=== PATIENT | female | born 1990 | race Caucasian/White ===

== ENCOUNTER 2020-07-08 00:42 | Emergency (ER) | payer OTHER ==
[~2020-07-08] VITALS: Ht 170.2 cm; Wt 72.6 kg
[~2020-07-08 00:42] MED LIST: ADULT ONE DAI200 MCG; BENTYL PO; BIRTH CONTROL; BONIVA150 MG; CALCIUM 600 +1 EAC8; FLEXERIL PO; HYDROCODON-ACE1 EAC7 PO; IBUPROFEN 800800 M1 PO; IRON18 M1 PO; MACROBID 100 M100 M1 PO; MULTIVITAMINS1 EAC7 PO; NOHOMEMEDICATIONS; PHENERGAN 25 MG25 M1 PO; POTASSIUM20 PO; PRILOSEC 20 MG20 MG PO; PROBIOTIC1 EAC1 PO; PROMS25 WY RECTAL; PYRIDIUM200 MG PO; TORADOL 10 MG T10 MG PO; TRAMADOL 50 MG50 MG PO; ULTRAM 50MG TAB50 MG PO; ZANTAC 150MG T150 M1; ZOFRAN 4 MG ORAL4 M1 DIS; ZOFRAN ODT4 MG PO; ZOFRAN4 MG PO; ZPAK PO; [UNRECOGNIZED DRUG - REMARK]
[2020-07-08] MEDS ORDERED: BCP (00:51)
[2020-07-08 01:16] LABS: URINE BILIRUBIN NEGATIVE (Negative); URINE BLOOD NEGATIVE (Negative); URINE CLARITY CLEAR; URINE COLOR YELLOW; URINE GLUCOSE-RANDOM NEGATIVE (Negative); URINE KETONES NEGATIVE (Negative); URINE LEUKOCYTES-REFLEX TRACE (Negative); URINE NITRITE-REFLEX NEGATIVE (Negative); URINE PROTEIN NEGATIVE (Negative); URINE UROBILINOGEN 0.2 E.U./dl (0.2-1.0)
[2020-07-08 01:27] LABS: BACTERIA-REFLEX 1-9 Few /HPF (None Seen); CASTS None Seen /LPF (None Seen); CRYSTALS None Seen /LPF (None Seen); MUCUS 4-6 Moderate strn/LPF (None Seen); SQUAMOUS 0-3 Few /LPF (0-3); URINE RBC 0-2 Rare /HPF (0-2); URINE WBC-REFLEX 0-5 Rare /HPF (0-5)
[2020-07-08 01:48] LABS: HEMATOCRIT 38.5 % (37.0-47.0); MCH 27.9 pg (26.0-34.0); MCHC 33.6 g/dL (28.0-37.0); MCV 82.8 fL (80.0-100.0); MPV 7.8 fl. (7.2-11.1); NUCLEATED RBCS 0 /100WBC; PLATELET COUNT* 293 thou/uL (150-400); RBC 4.65 mil/uL (4.20-5.00); WBC 7.5 thou/uL (4.0-11.0)
[2020-07-08 02:07] LABS: CALCIUM 9.1 mg/dL (8.5-10.1); CREATININE 0.8 mg/dL (0.6-1.3); POTASSIUM 4.5 mmol/L (3.5-5.1)
[2020-07-08 02:11] LABS: ALBUMIN 3.4 g/dL (3.4-5.0); TOTAL BILIRUBIN 0.4 mg/dL (<0.1-1.0); TOTAL PROTEIN 6.9 g/dL (6.4-8.2)
[2020-07-08] MEDS ORDERED: DICYCLOMINE HCL20 MG PO (02:30)
[2020-07-08 02:40] VITALS: BP 109/76
[2020-07-08 04:24] LABS: ABSOLUTE EOSINOPHILS 0.1 thou/uL (0.0-0.7); ABSOLUTE LYMPHOCYTES 1.7 thou/uL (0.8-5.3); ABSOLUTE MONOCYTES 0.4 thou/uL (0.0-1.2); ABSOLUTE NEUTROPHILS 5.3 thou/uL (1.6-8.1); EOSINOPHILS 1.2 %; LYMPHOCYTES 22.7 %; MONOCYTES 5.3 %; POLYS 70.2 %
[2020-07-08 04:25] LABS: BASOPHILS 0.6 %
== END 2020-07-08 02:40 | disposition home or self-care (01) ==
LOC: M.ERS 00:42
PROVIDERS: Personal Emergency Response Attendant
DX: K59.00 Constipation, unspecified (principal); K58.9 Irritable bowel syndrome, unspecified; K21.9 Gastro-esophageal reflux disease without esophagitis; Z88.6 Allergy status to analgesic agent; Z88.5 Allergy status to narcotic agent; Z91.010 Allergy to peanuts; Z91.018 Allergy to other foods; Z87.442 Personal history of urinary calculi; Z90.89 Acquired absence of other organs